=== PATIENT | female | born 1945 | race Caucasian/White ===

== ENCOUNTER → 2016-06-02 | Outpatient (CLI) | payer MEDICARE ==
[~2016-06-02] MED LIST: ADVIL 200MG TA200 MG PO; ALEVE PO; ASPIR-LOW81 MG PO; ASPIRIN 81M81 MG/TA2 PO; COLACE 100100 MG/CAP PO; DIPROLENE CR15GM TP; FISH OIL 1000MG1 CAP PO; GLUCOSAMINE/CHONDROI PO; GUAIFENESIN PO; LEVOTHROID0.125 MG PO; LISINOPRIL/HCTZ1 TAB PO; PRINZIDE 12.5 M1 TAB PO; SYNTHROID 0.10.15 MG PO; TYLENOL 500MG500 MG PO; VITAMIN B COMPL1 T16 PO; VITAMIN D 1001000 IU PO
== END ==
LOC: MC.RAD 11:20
DX: Z12.31 Encounter for screening mammogram for malignant neoplasm of breast (principal)

== ENCOUNTER 2016-07-05 08:48 | Inpatient (IN) | payer MEDICARE ==
[~2016-07-05] VITALS: Ht 162.6 cm; Wt 90.0 kg
[~2016-07-05 08:48] MED LIST changes: -ASPIRIN 81M81 MG/TA2 PO; -COLACE 100100 MG/CAP PO; -DIPROLENE CR15GM TP; -FISH OIL 1000MG1 CAP PO; -PRINZIDE 12.5 M1 TAB PO; -VITAMIN B COMPL1 T16 PO; -VITAMIN D 1001000 IU PO
[2016-08-21] MEDS ORDERED: SYNTHROID 0.10.15 MG PO (10:50)
[2016-08-21] MEDS ORDERED: VITAMIN D 1001000 IU PO (10:51)
[2016-08-21] MEDS ORDERED: FISH OIL 1000MG1 CAP PO (10:51)
[2016-08-21] MEDS ORDERED: PRINZIDE 12.5 M1 TAB PO (10:51)
[2016-08-21] MEDS ORDERED: DIPROLENE CR15GM TP (10:55)
[2016-08-21] MEDS ORDERED: VITAMIN B COMPL1 T16 PO (10:56)
[2016-08-21] MEDS ORDERED: COLACE 100100 MG/CAP PO (10:56)
[2016-08-21] MEDS ORDERED: ASPIRIN 81M81 MG/TA2 PO (10:57)
[2016-08-22] VITALS (9 sets, daily range): BP systolic 85–125; BP diastolic 47–67; PULSE 52–70; TEMP 97.4–98
[2016-08-23 04:15] VITALS: BP 100/64; PULSE 59; TEMP 98.9
[2016-08-23 07:30] VITALS: BP 108/62; PULSE 58; TEMP 97.4
[2016-08-23 07:52] LABS: HEMATOCRIT 44.1 % (37.0-47.0); HEMOGLOBIN 15.1 g/dl (12.5-16.0)
[2016-08-23 10:35] LABS: PROTHROMBIN TIME 11.2 SECONDS (9.7-12.8)
[2016-08-23 11:27] VITALS: BP 119/55; PULSE 52; TEMP 97.6
[2016-08-23 16:45] VITALS: BP 99/54; PULSE 55; TEMP 97.5
[2016-08-23 21:25] VITALS: BP 115/50; PULSE 58; TEMP 98.2
[2016-08-24 00:48] VITALS: BP 121/56; PULSE 75
[2016-08-24 05:29] VITALS: BP 109/48; PULSE 62; TEMP 98.3
[2016-08-24 06:36] LABS: PROTHROMBIN TIME 11.5 SECONDS (9.7-12.8)
[2016-08-24 06:43] LABS: HEMATOCRIT 46.4 % (37.0-47.0); HEMOGLOBIN 15.8 g/dl (12.5-16.0)
[2016-08-24 07:03] VITALS: BP 108/53; PULSE 55; TEMP 97.8
[2016-08-24 11:45] VITALS: BP 110/66; PULSE 69; TEMP 98.6
[2016-08-24 20:49] VITALS: BP 119/58; PULSE 67; TEMP 97.9
[2016-08-25 03:52] VITALS: BP 127/65; PULSE 76; TEMP 97.7
[2016-08-25 06:39] LABS: HEMATOCRIT 47.9 % (37.0-47.0)
[2016-08-25 07:31] VITALS: BP 128/57; PULSE 70; TEMP 98.2
[2016-08-25 08:50] LABS: INR 1.4 (0.8-3.0); PROTHROMBIN TIME 15.7 SECONDS (9.7-12.8)
[2016-08-25 09:51] VITALS: BP 128/57; PULSE 70; TEMP 98.2
== END 2016-08-25 11:15 | DRG 470 ==
LOC: JCC 08-22 07:30
PROVIDERS: Orthopaedic Surgery
PROC: 0SRD0J9 Replacement of Left Knee Joint with Synthetic Substitute, Cemented, Open Approach (ICD-10-PCS; principal; 2016-08-22 11:30)
DX: M17.12 Unilateral primary osteoarthritis, left knee (principal)
CPT/HCPCS: A4315; A9284; C1713; C1776; J0690; J1100; J2250; J2405; J2704; J3010; J7120

== ENCOUNTER → 2016-07-24 | Outpatient (CLI) | payer MEDICARE ==
[~2016-07-24] MED LIST changes: +ASPIRIN 81M81 MG/TA2 PO; +COLACE 100100 MG/CAP PO; +DIPROLENE CR15GM TP; +FISH OIL 1000MG1 CAP PO; +PRINZIDE 12.5 M1 TAB PO; +VITAMIN B COMPL1 T16 PO; +VITAMIN D 1001000 IU PO
== END ==
LOC: COL.LAB 13:39
DX: Z53.9 Procedure and treatment not carried out, unspecified reason (principal)

== ENCOUNTER → 2016-07-25 | Outpatient (CLI) | payer MEDICARE ==
[2016-07-25 12:53] LABS: HIV 1/2 Antibodies Non-Reactive; HIV-1p24 Antigen Non-Reactive
== END ==
LOC: COL.LAB 11:45
PROVIDERS: Orthopaedic Surgery
DX: Z01.812 Encounter for preprocedural laboratory examination (principal); M25.862 Other specified joint disorders, left knee

== ENCOUNTER 2016-11-07 13:15 | Outpatient (RCR) | payer MEDICARE | END 2016-11-23 10:13 | disposition still patient (30) | LOC: WSPT 13:15 | DX: M25.562 Pain in left knee (principal); Z96.652 Presence of left artificial knee joint | CPT/HCPCS: G0283-GP; G8978-GP; G8979-GP; G8980-GP ==

== ENCOUNTER → 2017-10-02 | Outpatient (CLI) | payer MEDICARE | LOC: MC.RAD 10:10 | DX: Z12.31 Encounter for screening mammogram for malignant neoplasm of breast (principal) ==

== ENCOUNTER 2017-12-20 13:00 | Outpatient (RCR) | payer MEDICARE | END 2018-01-11 08:36 | disposition home or self-care (01) | LOC: WSC 13:00 | DX: M19.012 Primary osteoarthritis, left shoulder (principal); M75.52 Bursitis of left shoulder | CPT/HCPCS: G8984-GP; G8985-GP ==

== ENCOUNTER → 2018-09-19 | Outpatient (CLI) | payer MEDICARE | LOC: SUN.DIA 14:50 | DX: E11.9 Type 2 diabetes mellitus without complications (principal); I10 Essential (primary) hypertension; E66.9 Obesity, unspecified | CPT/HCPCS: G0108 ==

== ENCOUNTER → 2018-10-30 | Outpatient (CLI) | payer MEDICARE | LOC: DIA.ED 13:20 | DX: E11.9 Type 2 diabetes mellitus without complications (principal); I10 Essential (primary) hypertension; E66.9 Obesity, unspecified ==

== ENCOUNTER → 2018-11-12 | Outpatient (CLI) | payer MEDICARE | LOC: MC.RAD 10:35 | DX: Z12.31 Encounter for screening mammogram for malignant neoplasm of breast (principal) ==

== ENCOUNTER → 2018-11-13 | Outpatient (CLI) | payer MEDICARE | LOC: DIA.ED 13:46 | DX: Z12.31 Encounter for screening mammogram for malignant neoplasm of breast (principal); E11.9 Type 2 diabetes mellitus without complications; E66.9 Obesity, unspecified | CPT/HCPCS: G0109 ==

== ENCOUNTER → 2018-12-04 | Outpatient (CLI) | payer MEDICARE | LOC: DIA.ED 09:18 | DX: E11.9 Type 2 diabetes mellitus without complications (principal); I10 Essential (primary) hypertension; E66.9 Obesity, unspecified | CPT/HCPCS: G0109 ==

== ENCOUNTER → 2018-12-17 | Outpatient (CLI) | payer MEDICARE | LOC: DIA.ED 10:54 | DX: E11.9 Type 2 diabetes mellitus without complications (principal); I10 Essential (primary) hypertension; E66.9 Obesity, unspecified ==

== ENCOUNTER → 2019-11-18 | Outpatient (CLI) | payer MEDICARE | LOC: MC.RAD 09:48 | DX: Z12.31 Encounter for screening mammogram for malignant neoplasm of breast (principal) ==

== ENCOUNTER → 2020-12-17 | Outpatient (CLI) | payer MEDICARE | LOC: MC.RAD 10:25 | DX: Z12.31 Encounter for screening mammogram for malignant neoplasm of breast (principal) ==

== ENCOUNTER 2021-11-25 12:57 | Outpatient (RCR) | payer MEDICARE ==
[2021-12-08] MEDS ORDERED: ROXICODONE 55 MG/TAB PO (00:59)
== END 2021-12-07 | disposition home or self-care (01) ==
LOC: WSPT
DX: M17.11 Unilateral primary osteoarthritis, right knee (principal)

== ENCOUNTER 2021-12-08 00:11 | Emergency (ER) | payer MEDICARE ==
[~2021-12-08] VITALS: Ht 162.6 cm; Wt 75.0 kg
[2021-12-08 00:25] VITALS: TEMP 98
[2021-12-08] MEDS ORDERED: ROXICODONE 55 MG/TAB PO (00:59)
[2021-12-08 01:25] VITALS: BP 139/71; PULSE 74
== END 2021-12-08 01:25 | disposition home or self-care (01) ==
LOC: COL.ER 00:11
DX: Z96.651 Presence of right artificial knee joint (principal); Z88.5 Allergy status to narcotic agent

== ENCOUNTER → 2022-02-08 | Outpatient (CLI) | payer MEDICARE ==
[~2022-02-08] MED LIST changes: +ROXICODONE 55 MG/TAB PO
== END ==
LOC: MC.RAD 11:11
DX: Z12.31 Encounter for screening mammogram for malignant neoplasm of breast (principal)